=== PATIENT | female | born 1980 | race Caucasian/White ===

== ENCOUNTER → 2024-11-23 12:29 | Outpatient (REF) | payer OTHER, SELFPAY | LOC: REG 12:29 | PROVIDERS: ATTENDING PHYSICIAN Nurse Practitioner Family; FAMILY PHYSICIAN Family Medicine | DX: M54.50 Low back pain, unspecified (principal) | CPT/HCPCS: 72110 ==

== ENCOUNTER → 2025-06-15 07:14 | Outpatient (REF) | payer OTHER, SELFPAY | LOC: WDC 07:14 | PROVIDERS: ATTENDING PHYSICIAN Nurse Practitioner Family | DX: M84.30XA Stress fracture, unspecified site, initial encounter for fracture (principal); Z12.31 Encounter for screening mammogram for malignant neoplasm of breast | CPT/HCPCS: 77063; 77067; 77080 ==

== ENCOUNTER → 2025-07-26 10:19 | Outpatient (REF) | payer OTHER, SELFPAY | LOC: WDC 10:19 | PROVIDERS: ATTENDING PHYSICIAN Nurse Practitioner Family | DX: R92.8 Other abnormal and inconclusive findings on diagnostic imaging of breast (principal) | CPT/HCPCS: 76642 ==

== ENCOUNTER → 2025-10-18 09:30 | Outpatient (REF) | payer OTHER, SELFPAY | LOC: RAD 09:30 | PROVIDERS: ATTENDING PHYSICIAN Nurse Practitioner Family | DX: K59.09 Other constipation (principal) | CPT/HCPCS: 74019 ==